=== PATIENT | female | born 1995 | race Caucasian/White ===

== ENCOUNTER 2019-01-22 23:19 | Emergency (ER) | payer OTHER, SELFPAY ==
[2019-01-22 23:21] VITALS: BP 148/85; PULSE 87; RESP 18; TEMP 36.7; O2SAT 100
--- NOTE | 2019-01-22 23:22 | ED.GENADUL_ITS ---
Discharge Plan Disposition Patient Disposition: HOME Condition: Stable Discharge Details Chief Complaint: Urinary Clinical Impression: Cystitis Primary Care Provider: Jordan Davies ED Provider: Jhony Maxwell Home Meds and New Rx's Prescriptions: New nitrofurantoin monohyd/m-cryst [Macrobid] 100 mg capsule 100 mg PO BID Qty: 14 RF: 0 Continued fluocinolone 15 GM cream 1 isac Topical BID Qty: 1 RF: 0 norgestimate-ethinyl estradiol [Ortho Tri-Cyclen (28)] 1 EACH tablet 1 tab-cap PO DAILY Qty: 3 RF: 4 Discharge Instructions Additional Instructions: You are being treated for a urinary tract infection drink fluids to stay hydrated if not better within a week see your primary care provider if you feel you are becoming more ill, have high fevers, severe back or abdominal pain return to the emergency department for reevaluation Medical Decision Making 23 yo female who denies chronic medical problems comes in with burning with urination and blood in urine for 2 hours. STates felt well all day prior to this and denies severe aback pain, flank pain, abdominal pain or n/v or fevers. She arrives in no distress. Denies having this happen in the past and states it was clearly from her urine as she has no vaginal bleeding and her tampon was clean. Given symptoms suspect cystitis, will obtain UA pt with significant blood on UA, given her burning symptoms will empirically treat for uti and d/c, return precautions given Differential Diagnosis Differential Diagnosis: cystitis, uti, interstitial cystitis HPI General Mode of arrival: ambulatory . Date/Time Provider Initiated Documentation: 01/22/19 23:20 . Limitations to Documentation: no limitations . Information obtained by: patient . History of Present Illness 23 year old F presents to the emergency department with the chief complaint of blood in urine, described as moderate, Patient started experiencing this hour(s) (2) and it has been constant. No relieving factors improve symptom(s), No exacerbati ng factors reported . Patient did receive the following treatments prior to arrival, none Related Data Home Medications Medication Instructions Recorded Confirmed fluocinolone 1 isac TOPICAL BID #1 tube 12/28/13 01/22/19 norgestimate-ethinyl estradiol 1 tab-cap PO DAILY #3 pack 09/25/15 01/22/19 [Ortho Tri-Cyclen (28)] nitrofurantoin monohyd/m-cryst 100 mg PO BID #14 cap 01/22/19 [Macrobid] Previous Rx's Medication Instructions Recorded nitrofurantoin monohyd/m-cryst 100 mg PO BID #14 cap 01/22/19 [Macrobid] Allergies Allergy/AdvReac Type Severity Reaction Status Date / Time No Known Allergies Allergy Unverified 01/22/19 23:24 Review of Systems Review of Systems ROS Unobtainable: All systems reviewed & are unremarkable except as noted in HPI and below Constitutional Constitutional: Denies chills and Denies fever(s) Cardiovascular Cardiovascular: Denies dyspnea Respiratory Respiratory: Denies dyspnea Gastrointestinal Gastrointestinal: Denies abdominal pain, Denies nausea and Denies vomiting Musculoskeletal Musculoskeletal: Denies joint swelling [facility] Social History Smoking/Tobacco Use Status: Never Alcohol Intake: never Drug use: Never Substance use type: does not use Do you feel safe at home: Yes Do you feel safe in your relationship?: Yes Exam Const General: no acute distress Orientation: alert HENMT Head: normal to inspection Ears: external ears normal General nose exam: external nose normal Mouth: moist mucous membranes Eyes General: appearance normal, both eyes and all related structures Neck Neck: normal visual inspection Resp Effort & Inspection: normal respiratory effort and able to speak in complete sentences Cardio Rate: regular rate GI Palpation: soft Skin General skin exam: no rashes or lesions noted Neuro General: alert and oriented x3 Extrem General: normal to inspection Psych Mental Status: mental status grossly normal
[2019-01-22] MEDS: MacroBID 100 MG CAP PO (23:43)
[2019-01-22 23:45] LABS: Bilirubin Negative (Negative); Blood Moderate (Negative); Glucose Negative (Negative); Ketones Negative (Negative); Leukocyte Esterase Negative (Negative); Nitrite Negative (Negative); Specific Gravity >= 1.030 (1.005-1.025); pH 6.5 (5-8)
[2019-01-22 23:46] LABS: Clarity Cloudy (Clear)
[2019-01-22 23:48] LABS: C & S Indicated? C&S Done As Ordered
== END 2019-01-22 23:55 | disposition home or self-care (01) ==
PROVIDERS: Emergency Provider Emergency Medicine
DX: N30.01 Acute cystitis with hematuria (principal); B96.20 Unspecified Escherichia coli [E. coli] as the cause of diseases classified elsewhere
CPT/HCPCS: 81025; 87077; 99283; 81003; 81015; 87086; 87186

== ENCOUNTER 2019-12-24 02:37 | Outpatient (CLI) | payer OTHER, SELFPAY ==
[2019-12-24 08:15] LABS: Abs Immature Grans 0.06 10^3/uL (0.0-0.06); Absolute Basophil Count 0.06 10^3/uL (0.0-0.2); Absolute Eosinophil Count 0.29 10^3/uL (0.0-0.7); Absolute Lymphocyte Count 2.74 10^3/uL (1.2-3.4); Absolute Monocyte Count 0.72 10^3/uL (0.1-0.8); Absolute Neutrophil Count 5.15 10^3/uL (1.2-6.7); Basophils % 0.7; Eosinophils % 3.2; HCT 42.1 % (36.0-46.0); HGB 13.8 g/dL (11.2-15.7); Immature Grans % 0.7; Lymphocytes % 30.4; MCH 28.1 pg (27.0-33.0); MCHC 32.8 % (32.0-36.0); MCV 85.7 fL (80-95); MPV 8.6 fL (8.0-11.0); Nucleated RBC 0 %; Platelet Count 316 10^3/uL (130-400); RBC 4.91 10^6/uL (3.93-5.22); RDW 11.8 % (11.7-14.6); RDW-SD 35.7 fL; WBC 9.02 10^3/uL (4.4-10.8)
[2019-12-24 09:33] LABS: ALT 51 U/L (14-59); AST 29 U/L (15-37); Albumin 3.5 g/dL (3.4-5.0); Alkaline Phosphatase 63 U/L (46-116); Anion Gap 10.4 mmol/L (3-11); BUN 9 mg/dL (7-18); Bilirubin, Total 0.7 mg/dL (0.2-1.0); CO2 25.6 mmol/L (21.0-32.0); CREATININE 0.62 mg/dL (0.55-1.02); Calcium 9.2 mg/dL (8.5-10.1); Chloride 103 mmol/L (98-107); Glucose 81 mg/dL (74-106); Potassium 4.2 mmol/L (3.5-5.1); Sodium 139 mmol/L (136-145); TSH (W/Ref FT4) 0.03 uIU/mL (0.36-3.74); Total Protein 6.8 g/dL (6.4-8.2)
[2019-12-24 09:54] LABS: FREE T4 0.91 ng/dL (0.76-1.46)
[2019-12-27 12:25] LABS: IgA 237 mg/dL (85-499); Interpretation (See Note); Tissue Transglutaminase IgA <1.2 U/mL (<4.0)
== END 2019-12-24 02:57 ==
PROVIDERS: PCP Nurse Practitioner Adult Health; Visit Provider Nurse Practitioner Adult Health
DX: K52.9 Noninfective gastroenteritis and colitis, unspecified (principal)
CPT/HCPCS: 36415; 80053; 82784; 83516; 84439; 84443; 85025

== ENCOUNTER 2019-12-24 08:05 | Outpatient (REF) | payer OTHER, SELFPAY ==
[2020-01-04 14:19] LABS: Misc Referral (VDH) See Comments
== END 2019-12-24 08:25 ==
LOC: LBN 08:05
PROVIDERS: PCP Nurse Practitioner Adult Health; Visit Provider Nurse Practitioner Adult Health
DX: K52.9 Noninfective gastroenteritis and colitis, unspecified (principal)
CPT/HCPCS: 87505; 83993; 87324

== ENCOUNTER 2019-12-31 18:10 | Outpatient (REF) | payer OTHER, SELFPAY ==
[2020-01-03 20:38] LABS: Calprotectin 397 mcg/g
== END 2019-12-31 18:30 ==
LOC: LBN 18:10
PROVIDERS: PCP Nurse Practitioner Adult Health; Visit Provider Nurse Practitioner Adult Health
DX: R19.7 Diarrhea, unspecified (principal); K52.9 Noninfective gastroenteritis and colitis, unspecified
CPT/HCPCS: 83993

== ENCOUNTER 2020-01-21 18:42 | Outpatient (REF) | payer OTHER, SELFPAY ==
--- NOTE | 2020-01-21 10:30 | PAPFT_PTH ---
PATIENT: Vonda Sal LOC: RE[facility] U#:[id number] AGE/SX: 24/F ROOM: RE01/21/[address]: Rosalie Price APRN : 1995 BED: DIS: 01/21/2020 SPEC #: [id number] RECD: 01/24/20 13:03 STATUS: CHANDNI REEd #: [id number] ALEXX: 01/21/20 10:[address]: Rosalie Price DEPT: [facility] Cytology RECD BY: Eva Hinton Tissues: 1 - CX/ENDOCX FOR PAP SMEARS Procedures: PAP THIN PREP/UVM Screening Comments: [id number]
[2020-01-25 14:48] LABS: Chlamydia Result Negative (Negative); GC Result Negative (Negative)
== END 2020-01-21 19:02 ==
LOC: LBN 18:42
PROVIDERS: PCP Nurse Practitioner Adult Health; Visit Provider Nurse Practitioner Adult Health
DX: Z11.3 Encounter for screening for infections with a predominantly sexual mode of transmission (principal); Z12.4 Encounter for screening for malignant neoplasm of cervix; Z87.42 Personal history of other diseases of the female genital tract
CPT/HCPCS: 87491; 87591; 88142; 87480; 87510; 87660

== ENCOUNTER 2021-01-24 14:07 | Outpatient (REF) | payer OTHER, SELFPAY ==
--- NOTE | 2021-01-24 | PAPFT_PTH ---
PATIENT: Vonda Sal LOC: RENA U#:[id number] AGE/SX: 25/F ROOM: RE01/24/[address]: Rosalie Price APRN : 1995 BED: DIS: 01/24/2021 SPEC #: [id number] RECD: 01/24/21 17:48 STATUS: CHANDNI ARAYA #: [id number] ALEXX: 01/24/21 00:[address]: Rosalie Price DEPT: [facility] Cytology RECD BY: Eva Hinton Tissues: 1 - CX/ENDOCX FOR PAP SMEARS Procedures: PAP THIN PREP/UVM Screening Comments: [id number]
[2021-01-25 15:07] LABS: Chlamydia Result Negative (Negative); GC Result Negative (Negative)
== END 2021-01-24 14:08 | disposition home or self-care (01) ==
LOC: LBN 14:07
PROVIDERS: PCP Nurse Practitioner Adult Health; Visit Provider Nurse Practitioner Adult Health
DX: Z11.3 Encounter for screening for infections with a predominantly sexual mode of transmission (principal); Z12.4 Encounter for screening for malignant neoplasm of cervix
CPT/HCPCS: 87491; 87591; 88142; 87480; 87510; 87660

== ENCOUNTER 2022-02-05 02:03 | Outpatient (CLI) | payer OTHER, SELFPAY ==
[2022-02-05 09:59] LABS: TSH (W/Ref FT4) 2.16 uIU/mL (0.36-3.74)
== END 2022-02-05 02:04 | disposition home or self-care (01) ==
LOC: LBO 02:03
PROVIDERS: PCP Nurse Practitioner Adult Health; Referring Provider Nurse Practitioner Adult Health; Visit Provider Nurse Practitioner Adult Health
DX: R63.5 Abnormal weight gain (principal); R79.89 Other specified abnormal findings of blood chemistry
CPT/HCPCS: 36415; 84443

== ENCOUNTER 2022-05-18 14:32 | Emergency (ER) | payer OTHER, SELFPAY ==
[2022-05-18 14:35] VITALS: BP 144/91; PULSE 78; RESP 18; TEMP 36.7; O2SAT 100
[2022-05-18 14:54] LABS: Bilirubin Negative (Negative); Blood Large (Negative); Clarity Sl Cloudy (Clear); Glucose Negative (Negative); Ketones Negative (Negative); Leukocyte Esterase Trace (Negative); Nitrite Positive (Negative); Specific Gravity 1.015 (1.005-1.025); Urobilinogen 0.2 EU/dL (Up TO 0.2)
[2022-05-18 15:05] LABS: RBC >50 HPF (0-2)
--- NOTE | 2022-05-18 15:05 | ED.GENADUL_ITS ---
Discharge Plan Disposition Patient Disposition: Home Condition: Stable Discharge Details Clinical Impression: UTI (urinary tract infection) Primary Care Provider: Rosalie Price ED Provider: Ricky Felix Home Meds and New Rx's Prescriptions: New phenazopyridine [Pyridium] 100 mg tablet 100 mg PO TID PRNQty: 5 0RF nitrofurantoin monohyd/m-cryst [Macrobid] 100 mg capsule 100 mg PO Q12H 5 Days Qty: 10 0RF Rx Instructions: must administer with a meal/food Continued IUD vaginal Label Comments: 04/11/2017 [facility] RENTAL AGENT fluocinonide 0.05 % cream 1 applic topical BID PRN (Reason: rash) Qty: 30 1RF Rx Instructions: Apply thin layer to affected eczema rash (arms, legs, hands) Discharge Instructions Instructions: Urinary Tract Infection in Women (ED) Additional Instructions: Please take medication as prescribed and continue to monitor your symptoms. If you begin having significant fever chills, nausea and vomiting causes you to not be able to take your medications, or significant worsening of your condition please return to the emergency department for reassessment. Otherwise follow-up with your primary care provider if not improving in the next week. Referrals: Rosalie Price, BOOKKEEPER [Primary Care Provider] - Discharge Data Discharge Date/Time-TO BE ENTERED AT DEPARTURE: 05/18/22 15:19 Medical Decision Making Patient presenting to the emergency department for concern of a possible UTI. She states that today she started having burning with urination and blood in her urine. Patient otherwise denies pain or discomfort physical exam is unremarkable. Did review past it for similar presentation and patient did have positive urine culture. We will perform urinalysis and urine for suspected UTI. Patient is not and urinalysis does show positive for nitrites, blood, leukocyte Estrace. Microscopy does show significant amount of blood making all other findings in able to be read. Given similar to previous presentation we will treat patient with Macrobid which she was sensitive to and give Pyridium for pain. After discussion of diagnosis and plan of care patient has no further needs, questions, or concerns and states clear understanding to return to the emergency department for any worsening symptoms. This documentation was generated using .[employer] system, please disregard any oddities of phrase or misspellings. Medical Records Medical records reviewed: Yes I reviewed the patient's medical records. Medical records narrative: Reviewed previous urine culture and sensitivities along with treatment HPI General Mode of arrival: ambulatory . Date/Time Provider Initiated Documentation: 05/18/22 14:35 . Limitations to Documentation: no limitations . Information obtained by: RN notes reviewed and old records reviewed . History of Present Illness 27 year old F presents to the emergency department with the chief complaint of UTI, described as moderate and similar to prior episodes, with intensity rated at 4. Quality is described as burning, and is localized to the genitals. Patient reports no radiation. Patient started experiencing this day(s) (1) and it has been constant. No relieving factors improve symptom(s), No exacerbating factors reported . Patient notes no other symptoms.. Patient did receive the following treatments prior to arrival, non e Related Data Home Medications Medication Instructions Recorded Confirmed IUD vaginal 12/15/19 01/28/22 fluocinonide 0.05 % topical cream 1 applic topical BID PRN rash #30 09/22/20 05/18/22 grams nitrofurantoin 100 mg PO Q12H 5 days #10 caps 05/18/22 monohydrate/macrocrystals 100 mg capsule (Macrobid) phenazopyridine 100 mg tablet 100 mg PO TID PRN #5 tabs 05/18/22 (Pyridium) Previous Rx's Medication Instructions Recorded fluocinonide 0.05 % topical cream 1 applic topical BID PRN rash #30 09/22/20 grams nitrofurantoin 100 mg PO Q12H 5 days #10 caps 05/18/22 monohydrate/macrocrystals 100 mg capsule (Macrobid) phenazopyridine 100 mg tablet 100 mg PO TID PRN #5 tabs 05/18/22 (Pyridium) Allergies Allergy/AdvReac Type Severity Reaction Status Date / Time No Known Allergies Allergy Verified 05/18/22 14:38 General Stated Complaint: Urinary DEVON: 4 Review of Systems Constitutional Constitutional: Denies body ache(s), Denies chills, Denies fever(s), Denies malaise and Denies weakness Cardiovascular Cardiovascular: Denies chest pain Respiratory Respiratory: Reports system reviewed and no additional complaints, except as documented Gastrointestinal Gastrointestinal: Denies abdominal pain, Denies nausea and Denies vomiting Genitourinary Genitourinary: Reports as per HPI, Reports hematuria, Denies genital pruritis, Reports dysuria, Denies pelvic pain, Reports urinary urgency and Denies vaginal discharge Integumentary/Breasts Skin/Breast: Denies rash Neurologic Neurologic: Denies confusion and Denies weakness Psychiatric Psychiatric: Denies confusion PFSH All Active Problems (Updated 05/18/22 @ 15:13 by Ricky Felix NP) UTI (urinary tract infection) (Acute) Radiculopathy of lumbar region (Acute) Per [facility] Occ Med Note 04/04/22 Strain of lumbar region (Acute) Per [facility] Occ Med note 04/04/22 Subclinical hypothyroidism (Acute) Exposure to second hand smoke (Chronic) Family Chronic diarrhea (Chronic) 5+ times per day starting 2018 or so; +Calprotectin; [facility] GI referral 01/2020 s/p colonoscopy [facility] , normal colon, but mild ileitis--SIBO vs. IBS- D; she did better on Rifampin anbx-->she didn't f/u with them thereafter, but knows this is an option Eczema (Chronic) Topical steroids typically effective (inside arms) Dysmenorrhea (Chronic 09/10/12) IUD related? Medical History Asthma (09/25/11) HS, outgrew; exercise at high elevations is trigger, intermittent History of abnormal cervical Pap smear +ASCUS & epithelial cells (08/21/2018) Normal cytology (01/2020) Normal cytology (02/2021) Surgical History History of cyst of breast (~2016) Removed - Right; routine mammography F/U History of tonsillectomy and adenoidectomy Age 2 1/2 History of wisdom tooth extraction Family History Mother Fibrocystic breast changes Hypothyroidism Maternal Grandmother Pancreatic cancer Hypertension Paternal Grandmother Cervical cancer Hypertension Heart disease Maternal Grandfather Heart disease Hypertension Paternal Grandfather Hypertension Father Hypertension Social History Smoking/Tobacco Use Status: Never Second Hand Exposure: No Smoking risk assessment performed?: Yes Alcohol Intake: current Alcohol Intake frequency: a few times a month Details: 1-2 drinks less than monthly Drug use: Never Substance use type: does not use Adopted: No Caregiver/Support person: No Foster care: No Household members: significant other Housing: house Number of Children: 0 Communication Needs: None Do you need help understanding health information?: Rarely current occupation: Nurse, [employer] Pets and animals: Yes (x2) Pets and animals: cat(s) Sexually active: Yes Do you think of yourself as: straight/heterosexual Current gender identity: female What is your relationship status?: living with partner How often do you talk on the phone with friends or family?: three or more times per week How often do you get together with friends or relatives?: three or more times per week How often do you attend presybeterian or mu-ism services?: decline to answer Do you belong to any clubs or organized social groups?: no Panel score (0-1 are the most socially isolated patients): 2 What type of physical activity do you participate in: bicycling, regular exercise and other Details: Weights Duration: 45-60 minutes/day Frequency: 3-4 times per week Tati/Caodaism: None Special tati needs: No Seatbelt use: always Helmet use: Yes Drive intox or ride w/intox laundry route driver: Yes Do you feel safe at home: Yes Do you feel safe in your relationship?: Yes Exam Const General: cooperative and no acute distress Orientation: alert, awake and oriented x3 Resp Effort & Inspection: normal respiratory effort and able to speak in complete sentences Auscultation: clear to auscultation bilaterally Cardio Rate: regular rate Rhythm: regular rhythm Heart Sounds: S1 normal and S2 normal GI Palpation: nontender Back/Spine/Pelvis Back: no CVA tenderness Neuro General: patient alert, patient awake and patient oriented x3 Extrem General: capillary refill normal Course Vital Signs Vital signs: Vital Signs Temperature 36.7 C 05/18/22 14:35 Pulse 78 05/18/22 14:35 Respiratory Rate 18 05/18/22 14:35 Blood Pressure 144/91 H 05/18/22 14:35 Pulse Oximetry 100 05/18/22 14:35 Temperature 36.7 C 05/18/22 14:35 Pulse 78 05/18/22 14:35 Respiratory Rate 18 05/18/22 14:35 Respiratory Effort 05/18/22 14:37 Blood Pressure 144/91 H 05/18/22 14:35 Blood Pressure Position Sitting 05/18/22 14:35 Pulse Oximetry 100 05/18/22 14:35 Oxygen Delivery Method Room Air 05/18/22 14:35 Oxygen Flow Rate 0 05/18/22 14:35 Pain Level 0 05/18/22 14:35 Lab/Test Results Lab/Test Results: Laboratory Tests Range/Units 05/18/22 14:48 Urine Color (Yellow) Red Urine Clarity (Clear) Sl Cloudy Urine pH (5-8) 7.0 Ur Specific Ida (1.005-1.025) 1.015 Urine Protein (Negative) mg/dL 100 H Urine Ketones (Negative) mg/dL Negative Urine Blood (Negative) Large H Urine Nitrite (Negative) Positive H Urine Bilirubin (Negative) Negative Urine Urobilinogen (Up TO 0.2) EU/dL 0.2 Ur Leukocyte Esterase (Negative) Trace H Urine Glucose (Negative) mg/dL Negative POC- Test(urine) Negative
[2022-05-18 15:06] LABS: C & S Indicated? Yes
[2022-05-18] MEDS: Phenazopyridine 100 MG TAB PO (15:09)
[2022-05-18] MEDS: MacroBID 100 MG CAP PO (15:09)
== END 2022-05-18 15:19 | disposition home or self-care (01) ==
PROVIDERS: Emergency Provider Nurse Practitioner Family; PCP Nurse Practitioner Adult Health
DX: N39.0 Urinary tract infection, site not specified (principal); B96.20 Unspecified Escherichia coli [E. coli] as the cause of diseases classified elsewhere
CPT/HCPCS: 81025; 87077; 99283; 81003; 81015; 87086; 87186; 99284

== ENCOUNTER 2022-07-10 08:39 | Emergency (ER) | payer OTHER, SELFPAY ==
[2022-07-10 08:42] VITALS: BP 155/88; PULSE 96; RESP 18; TEMP 37; O2SAT 98
--- NOTE | 2022-07-10 08:55 | DI.RAD_ITS ---
Exam(s) XR HAND RT COMPLETE EXAM: XR HAND RT COMPLETE CLINICAL HISTORY: cat bite and scratch. TECHNIQUE: 2D digital imaging was performed. Three views. COMPARISON: No exams were available for comparison FINDINGS: BONES: No acute fracture is present. No bony destructive lesion is seen. JOINTS: No dislocation present. SOFT TISSUE: Air in the soft tissues of the dorsum of the hand. No foreign body. IMPRESSION: Air in the soft tissues. No fracture or foreign body. DATA REPOSITORY: RADIATION DOSE DELIVERED:
--- NOTE | 2022-07-10 08:58 | ED.GENADUL_ITS ---
Discharge Plan Disposition Patient Disposition: Home Discharge Details Clinical Impression: Cat bite, Cat scratch Primary Care Provider: Rosalie Price ED Provider: Eva Arboleda Home Meds and New Rx's Prescriptions: New amoxicillin-pot clavulanate 875-125 mg tablet 1 tab PO BID Qty: 20 0RF Continued IUD vaginal Patient Comments: 04/11/2017 [facility] DIRECTOR ADVERTISING fluocinonide 0.05 % cream 1 applic topical BID PRN (Reason: rash) Qty: 30 1RF Rx Instructions: Apply thin layer to affected eczema rash (arms, legs, hands) Discharge Instructions Additional Instructions: Take antibiotic as prescribed, you may discontinue at 7 days if the wound is healing well and there is no evidence of secondary infection Yogurt daily while on antibiotic Elevate your hands as much as possible and keep clean and covered Ibuprofen and Tylenol as needed for discomfort Keep covered for the next 2 to 3 days and after that allow to air dry and keep very clean as much as possible Please return should you develop spreading redness, worsening pain, fever, chills Stand Alone Forms: Work Release Referrals: Rosalie Price, MILIEU COORDINATOR [Primary Care Provider] - Medical Decision Making 27-year-old female presents with cat bite versus scratches to her hand X-ray shows air in the tissues likely secondary to bite No clinical exam findings consistent with tendon injury, some paresthesias to the dorsum of her hand likely secondary to swelling Will need recheck in 48 to 72 hours Placed on Augmentin for Pasteurella coverage prevention Wound cleansed and dressed by me Tetanus up-to-date Cat reportedly up-to-date on rabies vaccines Return precautions discussed and patient expressed understanding HPI General Date/Time Provider Initiated Documentation: 07/10/22 08:54 . HPI Narrative: This 27-year-old female presents with report of cat bite versus scratch to right hand just prior to arrival. She denies any additional injuries. Her tetanus is up-to-date. She denies any fever or chills. She presents mostly secondary to popping sensation in her hand after a cat bite. Denies any additional complaints at this time. Related Data Home Medications Medication Instructions Recorded Confirmed IUD vaginal 12/15/19 01/28/22 fluocinonide 0.05 % topical cream 1 applic topical BID PRN rash #30 09/22/20 07/10/22 grams amoxicillin 875 mg-potassium 1 tab PO BID #20 tabs 07/10/22 clavulanate 125 mg tablet Previous Rx's Medication Instructions Recorded fluocinonide 0.05 % topical cream 1 applic topical BID PRN rash #30 09/22/20 grams amoxicillin 875 mg-potassium 1 tab PO BID #20 tabs 07/10/22 clavulanate 125 mg tablet Allergies Allergy/AdvReac Type Severity Reaction Status Date / Time No Known Allergies Allergy Verified 07/10/22 08:47 General Stated Complaint: AnimalBite DEVON: 4 PFSH All Active Problems (Updated 07/10/22 @ 10:02 by DIAMOND Montoya) Cat bite (Acute) Cat scratch (Acute) Radiculopathy of lumbar region (Acute) Per [facility] Occ Med Note 04/04/22 Strain of lumbar region (Acute) Per [facility] Occ Med note 04/04/22 Subclinical hypothyroidism (Acute) Exposure to second hand smoke (Chronic) Family Chronic diarrhea (Chronic) 5+ times per day starting 2018 or so; +Calprotectin; [facility] GI referral 01/2020 s/p colonoscopy [facility] , normal colon, but mild ileitis--SIBO vs. IBS- D; she did better on Rifampin anbx-->she didn't f/u with them thereafter, but knows this is an option Eczema (Chronic) Topical steroids typically effective (inside arms) Dysmenorrhea (Chronic 09/10/12) IUD related? Medical History Asthma (09/25/11) HS, outgrew; exercise at high elevations is trigger, intermittent History of abnormal cervical Pap smear +ASCUS & epithelial cells (08/21/2018) Normal cytology (01/2020) Normal cytology (02/2021) Surgical History History of cyst of breast (~2016) Removed - Right; routine mammography F/U History of tonsillectomy and adenoidectomy Age 2 1/2 History of wisdom tooth extraction Family History Mother Fibrocystic breast changes Hypothyroidism Maternal Grandmother Pancreatic cancer Hypertension Paternal Grandmother Cervical cancer Hypertension Heart disease Maternal Grandfather Heart disease Hypertension Paternal Grandfather Hypertension Father Hypertension Social History Smoking/Tobacco Use Status: Never Second Hand Exposure: No Smoking risk assessment performed?: Yes Alcohol Intake: current Alcohol Intake frequency: a few times a month Details: 1-2 drinks less than monthly Drug use: Never Substance use type: does not use Adopted: No Caregiver/Support person: No Foster care: No Household members: significant other Housing: house Number of Children: 0 Communication Needs: None Do you need help understanding health information?: Rarely current occupation: Nurse, [employer] [place] Pets and animals: Yes (x2) Pets and animals: cat(s) Sexually active: Yes Do you think of yourself as: straight/heterosexual Current gender identity: female What is your relationship status?: living with partner How often do you talk on the phone with friends or family?: three or more times per week How often do you get together with friends or relatives?: three or more times per week How often do you attend mandaen or anabaptist services?: decline to answer Do you belong to any clubs or organized social groups?: no Panel score (0-1 are the most socially isolated patients): 2 What type of physical activity do you participate in: bicycling, regular exercise and other Details: Weights Duration: 45-60 minutes/day Frequency: 3-4 times per week Tati/Mu-Ism: None Special tati needs: No Seatbelt use: always Helmet use: Yes Drive intox or ride w/intox cmv driver: Yes Do you feel safe at home: Yes Do you feel safe in your relationship?: Yes Exam Narrative Exam Narrative: 27-year-old female in appearance with numerous scratches versus bites to her right hand and varying sizes She is neurovascularly intact has good flexion and extension, she does have subcutaneous emphysema with crepitus to the dorsal aspect of her hand, no evidence of infection at this point Course Vital Signs Vital signs: Vital Signs Temperature 37.0 C 07/10/22 08:42 Pulse 96 H 07/10/22 08:42 Respiratory Rate 18 07/10/22 08:42 Blood Pressure 155/88 H 07/10/22 08:42 Pulse Oximetry 98 07/10/22 08:42 Temperature 37.0 C 07/10/22 08:42 Temperature Source Tympanic 07/10/22 08:42 Pulse 96 H 07/10/22 08:42 Respiratory Rate 18 07/10/22 08:42 Respiratory Effort Normal 07/10/22 08:45 Blood Pressure 155/88 H 07/10/22 08:42 Blood Pressure Position Sitting 07/10/22 08:42 Pulse Oximetry 98 07/10/22 08:42 Oxygen Delivery Method Room Air 07/10/22 08:42 Oxygen Flow Rate 0 07/10/22 08:42 Pain Level 1 07/10/22 08:42
== END 2022-07-10 10:09 | disposition home or self-care (01) ==
PROVIDERS: Emergency Provider Physician Assistant; PCP Nurse Practitioner Adult Health
DX: S61.451A Open bite of right hand, initial encounter (principal); S60.511A Abrasion of right hand, initial encounter; W55.03XA Scratched by cat, initial encounter; W55.01XA Bitten by cat, initial encounter
CPT/HCPCS: 99283; 73130

== ENCOUNTER 2022-07-23 02:35 | Outpatient (CLI) | payer OTHER, SELFPAY ==
[2022-07-25 14:59] LABS: TB Interpretation Negative (Negative)
== END 2022-07-23 02:36 | disposition home or self-care (01) ==
PROVIDERS: PCP Nurse Practitioner Adult Health; Visit Provider Nurse Practitioner Adult Health
DX: Z11.1 Encounter for screening for respiratory tuberculosis (principal)
CPT/HCPCS: 36415; 86480

== ENCOUNTER 2022-11-21 11:10 | Outpatient (REF) | payer OTHER, SELFPAY | END 2022-11-21 11:11 | disposition home or self-care (01) | LOC: LBN 11:10 | PROVIDERS: PCP Nurse Practitioner Adult Health; Visit Provider Advanced Practice Midwife | DX: N89.8 Other specified noninflammatory disorders of vagina (principal) | CPT/HCPCS: 87480; 87510; 87660 ==